=== PATIENT | female | born 1960 | race Caucasian/White ===

== ENCOUNTER → 2018-02-10 15:54 | Outpatient (CLI) | payer MEDICARE, OTHER, SELFPAY ==
--- NOTE | 2018-02-10 16:04 | RAD_ITS ---
STUDY: X-RAY CHEST REASON FOR EXAM: Female, 57 years old. History of psoriatic arthropathy. TECHNIQUE: PA and lateral views of the chest. COMPARISON: None. FINDINGS: Minimal increased linear markings at the left lung base suggestive of mild linear atelectasis. Scattered calcified granulomas. There is no demonstrated pleural abnormality. Normal size heart. Normal mediastinum and jazlyn. Normal visualized pulmonary arteries. Normal visualized aortic arch and descending thoracic aorta. There are diffuse degenerative changes of the visualized thoracic spine. Normal visualized ribs, clavicles, and shoulders. There is no demonstrated abnormality of the visualized soft tissue structures of the upper abdomen. RAD/Chest PA and Lateral IMPRESSION: Minimal increased linear markings at the left lung base suggestive of mild left basilar atelectasis. Electronically Signed: Alejandro Menendez MD at 10:22 EST Tel [phone], Service support ,
[2018-02-10 17:57] LABS: Anion Gap 10 (5-15); BUN 12 mg/dL (7-18); BUN/Creat Ratio 12.5 RATIO (10-20); Calcium,Total 8.8 mg/dL (8.5-10.1); Chloride 106 mmol/L (98-107); Creatinine, Serum 0.96 mg/dL (0.55-1.02); EST Glomerular Filtration Rate 63 mL/min (>60); Est Glom Filt Rate - Afr Amer 76 mL/min (>60); Glucose 81 mg/dL (74-106); Potassium 3.8 mmol/L (3.5-5.1); Sodium Level 144 mmol/L (136-145)
--- OUTSIDE RECORDS SUMMARY | 2018-04-08 02:18 | XMS RPT_ITS ---
:1960 Author Organization OHIP Care Team Providers Name Role Phone JORGE SELF M.D. Attending Unavailable MT BARRIOS PA-C Attending Unavailable RYNE FLETCHER V Attending Unavailable JORGE SELF M.D. Attending Unavailable JORGE SELF M.D. Attending Unavailable JORGE SELF M.D. Attending Unavailable JORGE SELF M.D. Attending Unavailable ELBERT RECIO Attending Unavailable ELBERT RECIO Referring Unavailable ELBERT RECIO Attending Unavailable MILENA JIMENEZ Attending Unavailable Jorge Self Attending Unavailable Jorge Self Referring Unavailable CHUCKY MCKNIGHT Primary Care Unavailable JESSI NOBLES Attending Unavailable ALMITA PATRI Referring Unavailable JESSESMITHA SORIANO Primary Care Unavailable RECIOTHIERRYRI Attending Unavailable RECIO PATRI Referring Unavailable JESSESMITHA SORIANO Primary Care Unavailable IMCA Referring Unavailable RECIOKALEN PAN Attending Unavailable JESSESMITHA SORIANO Primary Care Unavailable IMCA Referring Unavailable MILENA JIMENEZ Attending Unavailable JESSE, SMITHA Primary Care Unavailable PROBLEMS PROBLEMS DATE TYPE CONDITION / CODE ATTENDING STATUS SOURCE 02/24/2018 Unknown L40.59 - Other [place], [facility].59([facility] Repository 12/10/2015 Active Radiculopathy, RECIO, Active [place] lumbar region / [facility] Other M54.16(ICD-10) [place] Repository 12/10/2015 Active Other chronic pain / RECIO, Active [place] G89.29(ICD-10) [facility] Other [place] Repository 12/10/2015 Active 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, 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 or [facility] Other radiculopathy, [place] cervical region / Repository M47.812(ICD-10) 12/10/2015 Active Other cervical disc RECIO, Active [place] displacement, [facility] Other unspecified cervical [place] region / Repository M50.20(ICD-10) 12/10/2015 Active Other cervical disc RECIO, 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, [facility] Other unspecified cervical [place] region / Repository M50.30(ICD-10) 12/12/2016 Active Sacrococcygeal RADDISH, 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, not [facility] Other elsewhere classified [place] / M53.3(ICD-10) Repository 12/10/2015 Active Other intervertebral [facility]ADDISH, [facility] [place] [facility] / [place] M51.26(ICD-10) Repository 12/10/2015 Active Other intervertebral RADDISH, 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, [facility] Other lumbosacral region / [place] M51.37(ICD-10) Repository 12/10/2015 Active Spondylosis without RADDISH, 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 or [facility] Other radiculopathy, [place] lumbosacral region / Repository M47.817(ICD-10) 04/28/2017 Active Cervicalgia / RADDISH, Active [place] M54.2(ICD-10) [facility] Other [place] Repository 04/28/2017 Active Dorsalgia, RADDISH, Active [place] unspecified / [facility] Other M54.9(ICD-10) [place] Repository 12/12/2016 Admitting Unknown / RADDISH, Active [facility] diagnosis UNK(Unknown) [facility] Repository PROCEDURES PROCEDURES No Procedure Records FoundRESULTS RESULTS BASIC METABOLIC Collected: 02/10/2018 Status: F Source: [place] PROFILE (BMP) 4:07 PM [facility] REPOSITORY Order Comment: Comments: QFT [id number] TYPE CODE TESTS RESULT OUT OF RANGE REFERENCE UNITS LAB L501.0100 74-106 mg/dL Normal GLU 81 Result Comment: Please note revised GLUCOSE reference range effective 2017. LAB L501.1000 7-18 mg/dL Normal BUN 12 LAB L501.1100 0.55-1.02 mg/dL Normal CREAT,SERUM 0.96 Result Comment: The validity of the calculated GFR AND GFRAA in patients over 70 years has not been determined. Clinical correlation is essential. LAB L501.1110 >60 mL/min Normal EST GFR 63 Result Comment: Non- GFR Calc LAB L501.1115 >60 mL/min Normal EST GFR - AA 76 Result Comment: GFR Calc LAB L501.1300 10-20 RATIO Normal BUN/CRE 12.5 LAB L501.2200 8.5-10.1 mg/dL CA Normal 8.8 LAB L501.5300 136-145 mmol/L NA Normal 144 LAB L501.5600 3.5-5.1 mmol/L K Normal 3.8 LAB L501.5900 98-107 mmol/L CL Normal 106 LAB L501.6100 21.0-32.0 mmol/L Normal CO2 28.0 LAB L501.6200 5-15 Normal GAP 10 Performed By: #### L500.2500 #### [facility] [address] [place], [address] MISCELLANEOUS LAB Collected: 02/10/2018 Status: F Source: [place] PROCEDURE 4:07 PM [facility] REPOSITORY Order Comment: Comments: QFT [id number] Test(s) Ordered: QFT [id number] TYPE CODE TESTS RESULT OUT OF RANGE REFERENCE UNITS LAB L801.1541 Normal [facility] TEST Result Comment: TEST RESULT UNITS REF INTERVAL QFT-TB Plus (Client Incubated) QuantiFERON Criteria The QuantiFERON-TB Gold Plus result is determined by subtracting the Nil value from either TB antigen (Ag) tube. The mitogen tube serves as a control for the test. QuantiFERON TB1 Ag Value 0.03 IU/mL QuantiFERON TB2 Ag Value 0.03 IU/mL QuantiFERON Nil Value 0.03 IU/mL QuantiFERON Mitogen Value >10.00 IU/mL QuantiFERON-TB Gold Plus Negative Negative The specimen received for QuantiFERON testing was incubated by the ordering institution. Specific procedures outlined in our Directory of Services and in the package insert for the QuantiFERON Gold (In Tube) test must be followed to enable for proper stimulation of cells for the production of interferon gamma. TESTING PERFORMED AT [facility]. ORIGINAL REPORT ON FILE IN LAB CONTAINS ADDITIONAL TEST SITE INFORMATION. Performed By: #### L801.1541 #### [facility] [address] [place] [place], [address] CHEST PA AND LATERAL Observed: 02/10/2018 Status: F Source: [place] 4:04 PM [facility] REPOSITORY [facility] Imaging Services [address] [place] [address] Chest PA and Lateral MR#: [id number] Acct: [id number] Name: SABA PERRY Gen Rep #: [id number] : 1960 F 57 From: Alejandro Menendez MD PCP: OUT OF TOWN DOCTOR Status: REG CLI Study: Chest PA and Lateral Date of Exam: 02/10/18 Exam# [id number] Ordering Dr: Jorge Self MD STUDY: X-RAY CHEST REASON FOR EXAM: Female, 57 years old. History of psoriatic arthropathy. TECHNIQUE: PA and lateral views of the chest. COMPARISON: None. FINDINGS: Minimal increased linear markings at the left lung base suggestive of mild linear atelectasis. Scattered calcified granulomas. There is no demonstrated pleural abnormality. Normal size heart. Normal mediastinum and jazlyn. Normal visualized pulmonary arteries. Normal visualized aortic arch and descending thoracic aorta. There are diffuse degenerative changes of the visualized thoracic spine. Normal visualized ribs, clavicles, and shoulders. There is no demonstrated abnormality of the visualized soft tissue structures of the upper abdomen. RAD/Chest PA and Lateral IMPRESSION: Minimal increased linear markings at the left lung base suggestive of mild left basilar atelectasis. 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 CBC Collected: 01/26/2018 Status: F Source: [facility] 5:52 PM HOSPITAL REPOSITORY TYPE CODE TESTS RESULT OUT OF RANGE REFERENCE UNITS LAB L200.0100 4.5-10.0 x10(3) Normal WBC 7.1 LAB L200.0200 3.30-5.00 x10(6) Normal RBC 4.03 LAB L200.0210 12.0-16.0 g/dL Low HGB 11.6 LAB L200.0220 36.0-48.0 % Low HCT 35.0 LAB L200.0230 80.0-99.0 fl Normal MCV 86.9 LAB L200.0240 28.5-32.9 pg Normal MCH 28.9 LAB L200.0250 33.0-36.0 g/dL Normal MCHC 33.2 LAB L200.0260 12.5-15.7 % Normal RDW 15.7 LAB L200.0270 150-450 X10(3) Normal PLT 315 LAB L200.0290 7.5-9.5 fl Normal MPV 8.4 LAB L200.0300 45.0-73.0 % Normal NEUT% 57.6 LAB L200.0310 16.0-48.0 % Normal LYMPH% 27.6 LAB L200.0320 4.3-11.2 % Normal MONO% 10.3 LAB L200.0330 0.5-4.9 % Normal EOS% 3.3 LAB L200.0340 0.0-1.0 % High BASO% 1.2 LAB L200.0350 1.40-6.50 x10(3) Normal NEUT# 4.10 LAB L200.0360 1.00-3.50 x10(3) Normal LYMPH# 2.00 LAB L200.0370 0.30-0.80 x10(3) Normal MONO# 0.70 LAB L200.0380 0.00-0.54 x10(3) Normal EOS# 0.20 LAB L200.0390 0.00-0.10 x10(3) Normal BASO# 0.10 Performed By: #### L200.0010 #### [facility] [address] [place] [id number] CMP Collected: 01/26/2018 Status: F Source: [facility] 5:52 PM HOSPITAL REPOSITORY TYPE CODE TESTS RESULT OUT OF RANGE REFERENCE UNITS LAB L100.0060 74-106 mg/dL GLUCOSE Normal 94 LAB L100.0110 6-20 mg/dL BUN Normal 16 LAB L100.0131 0.50-0.90 mg/dL High CREATININE 0.94 LAB L100.0140 8.6-10.0 mg/dL CALCIUM Normal 9.7 LAB L100.0150 135-145 mmol/L High SODIUM 150 LAB L100.0160 3.5-5.0 mmol/L Normal POTASSIUM 4.0 LAB L100.0170 98-107 mmol/L High CHLORIDE 108 LAB L100.0180 22-29 mmol/L TCO2 Normal 25 LAB L100.0185 15-22 mmol/L ANION Normal GAP 21.0 LAB L100.0200 6.4-8.3 g/dL TOTAL Normal PROTEIN 7.0 LAB L100.0210 3.5-5.2 g/dL ALBUMIN Normal 4.4 LAB L100.0220 0.2-1.2 mg/dL TOTAL Normal BILIRUBIN <0.2 LAB L100.0240 5-32 U/L AST Normal 26 LAB L100.0250 5-33 U/L ALT Normal 19 LAB L100.0260 35-105 U/L High ALK. PHOS 121 LAB L100.0262 1.5-4.5 g/dL Normal GLOBULIN,CALC 2.6 LAB L100.0264 1.1-2.5 A:G Normal RATIO 1.69 LAB L100.0274 eGFR Normal nonAFR [place] > 60 ml/Min/1.73m 2 LAB L100.0275 eGFR if Normal AFR BEVERLY > 60 ml/min/1.73m 2 Result Comment: eGFR >= 60 Indicates normal kidney function. * eGFR IS AN ESTIMATE * (AFR BEVERLY = ) (non-AFR AM = NON-) MDRD calculation used in the eGFR should not be used to dose medications. For further limitations of the eGFR please refer to the Physician Website or the National Kidney Disease Education Program website (www.nkdep.nih.gov). Performed By: #### L100.0005 #### [facility] [address] [place] [address] CBC Collected: 11/17/2017 Status: F Source: [facility] 4:10 PM HOSPITAL REPOSITORY TYPE CODE TESTS RESULT OUT OF RANGE REFERENCE UNITS LAB L200.0100 4.5-10.0 x10(3) Normal WBC 8.8 LAB L200.0200 3.30-5.00 x10(6) Normal RBC 4.14 LAB L200.0210 12.0-16.0 g/dL Low HGB 11.6 LAB L200.0220 36.0-48.0 % Low HCT 35.6 LAB L200.0230 80.0-99.0 fl Normal MCV 85.9 LAB L200.0240 28.5-32.9 pg Low MCH 28.0 LAB L200.0250 33.0-36.0 g/dL Low MCHC 32.6 LAB L200.0260 12.5-15.7 % High RDW 16.6 LAB L200.0270 150-450 X10(3) Normal PLT 370 LAB L200.0290 7.5-9.5 fl Normal MPV 8.2 LAB L200.0300 45.0-73.0 % Normal NEUT% 58.8 LAB L200.0310 16.0-48.0 % Normal LYMPH% 26.6 LAB L200.0320 4.3-11.2 % Normal MONO% 6.8 LAB L200.0330 0.5-4.9 % High EOS% 6.6 LAB L200.0340 0.0-1.0 % High BASO% 1.2 LAB L200.0350 1.40-6.50 x10(3) Normal NEUT# 5.20 LAB L200.0360 1.00-3.50 x10(3) Normal LYMPH# 2.30 LAB L200.0370 0.30-0.80 x10(3) Normal MONO# 0.60 LAB L200.0380 0.00-0.54 x10(3) High EOS# 0.60 LAB L200.0390 0.00-0.10 x10(3) Normal BASO# 0.10 Performed By: #### L200.0010 #### [facility] [address] [place] [id number] CMP Collected: 11/17/2017 Status: F Source: [facility] 4:10 PM HOSPITAL REPOSITORY TYPE CODE TESTS RESULT OUT OF RANGE REFERENCE UNITS LAB L100.0060 74-106 mg/dL GLUCOSE Normal 97 LAB L100.0110 6-20 mg/dL BUN Normal 14 LAB L100.0131 0.50-0.90 mg/dL High CREATININE 0.93 LAB L100.0140 8.6-10.0 mg/dL CALCIUM Normal 9.3 LAB L100.0150 135-145 mmol/L High SODIUM 148 LAB L100.0160 3.5-5.0 mmol/L Normal POTASSIUM 4.5 LAB L100.0170 98-107 mmol/L CHLORIDE Normal 107 LAB L100.0180 22-29 mmol/L TCO2 Normal 24 LAB L100.0185 15-22 mmol/L ANION Normal GAP 21.5 LAB L100.0200 6.4-8.3 g/dL TOTAL Normal PROTEIN 6.9 LAB L100.0210 3.5-5.2 g/dL ALBUMIN Normal 4.5 LAB L100.0220 0.2-1.2 mg/dL TOTAL Normal BILIRUBIN <0.2 LAB L100.0240 5-32 U/L AST Normal 25 LAB L100.0250 5-33 U/L ALT Normal 26 LAB L100.0260 35-105 U/L High ALK. PHOS 123 LAB L100.0262 1.5-4.5 g/dL Normal GLOBULIN,CALC 2.4 LAB L100.0264 1.1-2.5 A:G Normal RATIO 1.87 LAB L100.0274 eGFR Normal nonAFR [place] > 60 ml/Min/1.73m 2 LAB L100.0275 eGFR if Normal AFR BEVERLY > 60 ml/min/1.73m 2 Result Comment: eGFR >= 60 Indicates normal kidney function. * eGFR IS AN ESTIMATE * (AFR BEVERLY = ) (non-AFR AM = NON-) MDRD calculation used in the eGFR should not be used to dose medications. For further limitations of the eGFR please refer to the Physician Website or the National Kidney Disease Education Program website (www.nkdep.nih.gov). Performed By: #### L100.0005 #### [facility] [address] [place] [id number] CBC Collected: 08/28/2017 Status: F Source: [facility] 4:02 PM HOSPITAL REPOSITORY TYPE CODE TESTS RESULT OUT OF RANGE REFERENCE UNITS LAB L200.0100 4.5-10.0 x10(3) Normal WBC 7.4 LAB L200.0200 3.30-5.00 x10(6) Normal RBC 4.08 LAB L200.0210 12.0-16.0 g/dL Low HGB 11.6 LAB L200.0220 36.0-48.0 % Low HCT 35.2 LAB L200.0230 80.0-99.0 fl Normal MCV 86.3 LAB L200.0240 28.5-32.9 pg Normal MCH 28.5 LAB L200.0250 33.0-36.0 g/dL Normal MCHC 33.0 LAB L200.0260 12.5-15.7 % Normal RDW 15.5 LAB L200.0270 150-450 X10(3) Normal PLT 302 LAB L200.0290 7.5-9.5 fl Normal MPV 8.6 LAB L200.0300 45.0-73.0 % Normal NEUT% 59.9 LAB L200.0310 16.0-48.0 % Normal LYMPH% 29.4 LAB L200.0320 4.3-11.2 % Normal MONO% 6.9 LAB L200.0330 0.5-4.9 % Normal EOS% 2.6 LAB L200.0340 0.0-1.0 % High BASO% 1.2 LAB L200.0350 1.40-6.50 x10(3) Normal NEUT# 4.40 LAB L200.0360 1.00-3.50 x10(3) Normal LYMPH# 2.20 LAB L200.0370 0.30-0.80 x10(3) Normal MONO# 0.50 LAB L200.0380 0.00-0.54 x10(3) Normal EOS# 0.20 LAB L200.0390 0.00-0.10 x10(3) Normal BASO# 0.10 Performed By: #### L200.0010 #### [facility] [address] [place] [id number] CMP Collected: 08/28/2017 Status: F Source: [facility] 4:02 PM HOSPITAL REPOSITORY TYPE CODE TESTS RESULT OUT OF RANGE REFERENCE UNITS LAB L100.0060 74-106 mg/dL GLUCOSE Normal 90 LAB L100.0110 6-20 mg/dL BUN Normal 13 LAB L100.0131 0.50-0.90 mg/dL Normal CREATININE 0.78 LAB L100.0140 8.6-10.0 mg/dL CALCIUM Normal 9.0 LAB L100.0150 135-145 mmol/L SODIUM Normal 143 LAB L100.0160 3.5-5.0 mmol/L Normal POTASSIUM 3.7 LAB L100.0170 98-107 mmol/L CHLORIDE Normal 102 LAB L100.0180 22-29 mmol/L TCO2 Normal 27 LAB L100.0185 15-22 mmol/L ANION Normal GAP 17.7 LAB L100.0200 6.4-8.3 g/dL TOTAL Normal PROTEIN 6.5 LAB L100.0210 3.5-5.2 g/dL ALBUMIN Normal 4.2 LAB L100.0220 0.2-1.2 mg/dL TOTAL Normal BILIRUBIN <0.2 LAB L100.0240 5-32 U/L AST Normal 24 LAB L100.0250 5-33 U/L ALT Normal 18 LAB L100.0260 35-105 U/L ALK. Normal PHOS 104 LAB L100.0262 1.5-4.5 g/dL Normal GLOBULIN,CALC 2.3 LAB L100.0264 1.1-2.5 A:G Normal RATIO 1.82 LAB L100.0274 eGFR Normal nonAFR [place] > 60 ml/Min/1.73m 2 LAB L100.0275 eGFR if Normal AFR BEVERLY > 60 ml/min/1.73m 2 Result Comment: eGFR >= 60 Indicates normal kidney function. * eGFR IS AN ESTIMATE * (AFR BEVERLY = ) (non-AFR AM = NON-) MDRD calculation used in the eGFR should not be used to dose medications. For further limitations of the eGFR please refer to the Physician Website or the National Kidney Disease Education Program website (www.nkdep.nih.gov). Performed By: #### L100.0005 #### [facility] [address] [place] [id number] CMP Collected: 06/18/2017 Status: F Source: [facility] 8:49 AM HOSPITAL REPOSITORY TYPE CODE TESTS RESULT OUT OF RANGE REFERENCE UNITS LAB L100.0060 74-106 mg/dL High GLUCOSE 111 LAB L100.0110 6-20 mg/dL BUN Normal 12 LAB L100.0131 0.50-0.90 mg/dL Normal CREATININE 0.90 LAB L100.0140 8.6-10.0 mg/dL CALCIUM Normal 9.2 LAB L100.0150 135-145 mmol/L SODIUM Normal 144 LAB L100.0160 3.5-5.0 mmol/L Low POTASSIUM 3.4 LAB L100.0170 98-107 mmol/L CHLORIDE Normal 102 LAB L100.0180 22-29 mmol/L TCO2 Normal 25 LAB L100.0185 15-22 mmol/L ANION Normal GAP 20.4 LAB L100.0200 6.4-8.3 g/dL TOTAL Normal PROTEIN 6.6 LAB L100.0210 3.5-5.2 g/dL ALBUMIN Normal 4.2 LAB L100.0220 0.2-1.2 mg/dL TOTAL Normal BILIRUBIN 0.2 LAB L100.0240 5-32 U/L AST Normal 19 LAB L100.0250 5-33 U/L ALT Normal 18 LAB L100.0260 35-105 U/L High ALK. PHOS 106 LAB L100.0262 1.5-4.5 g/dL Normal GLOBULIN,CALC 2.4 LAB L100.0264 1.1-2.5 A:G Normal RATIO 1.75 LAB L100.0274 eGFR Normal nonAFR Beverly > 60 ml/Min/1.73m 2 LAB L100.0275 eGFR if Normal AFR BEVERLY > 60 ml/min/1.73m 2 Result Comment: eGFR >= 60 Indicates normal kidney function. * eGFR IS AN ESTIMATE * (AFR BEVERLY = ) (non-AFR AM = NON-) MDRD calculation used in the eGFR should not be used to dose medications. For further limitations of the eGFR please refer to the Physician Website or the National Kidney Disease Education Program website (www.nkdep.nih.gov). Performed By: #### L100.0005 #### [facility] [address] [place] [address] CBC Collected: 06/18/2017 Status: F Source: [facility] 8:49 AM HOSPITAL REPOSITORY TYPE CODE TESTS RESULT OUT OF RANGE REFERENCE UNITS LAB L200.0100 4.5-10.0 x10(3) Normal WBC 8.1 LAB L200.0200 3.30-5.00 x10(6) Normal RBC 4.31 LAB L200.0210 12.0-16.0 g/dL Normal HGB 12.3 LAB L200.0220 36.0-48.0 % Normal HCT 37.7 LAB L200.0230 80.0-99.0 fl Normal MCV 87.4 LAB L200.0240 28.5-32.9 pg Normal MCH 28.5 LAB L200.0250 33.0-36.0 g/dL Low MCHC 32.6 LAB L200.0260 12.5-15.7 % High RDW 15.9 LAB L200.0270 150-450 X10(3) Normal PLT 302 LAB L200.0290 7.5-9.5 fl Normal MPV 8.9 LAB L200.0300 45.0-73.0 % Normal NEUT% 62.0 LAB L200.0310 16.0-48.0 % Normal LYMPH% 27.1 LAB L200.0320 4.3-11.2 % Normal MONO% 5.8 LAB L200.0330 0.5-4.9 % Normal EOS% 4.1 LAB L200.0340 0.0-1.0 % Normal BASO% 1.0 LAB L200.0350 1.40-6.50 x10(3) Normal NEUT# 5.00 LAB L200.0360 1.00-3.50 x10(3) Normal LYMPH# 2.20 LAB L200.0370 0.30-0.80 x10(3) Normal MONO# 0.50 LAB L200.0380 0.00-0.54 x10(3) Normal EOS# 0.30 LAB L200.0390 0.00-0.10 x10(3) Normal BASO# 0.10 Performed By: #### L200.0010 #### [facility] [address] [place] [id number] PROCEDURE Observed: 06/03/2017 Status: COMPLETED Source: [place] 2:06 PM CLINIC OTHER CAMPUS REPOSITORY HNO ID: [id number] Author: Elbert Recio Service: (none) Author Type: Physician Type: Procedures Filed: 06/03/2017 2:17 PM Note Text: The HANDP completed on 05.25.17. I have reviewed the history and physical and examined the patient and there are no changes unless noted below: No update and/or changes to Saba Perry history and physical. Elbert Recio MD Timeout was performed to verify patient name, , allergies and procedure being performed at 1407 Patient is aware of potential risks and benefits of this procedure. Patient wishes to proceed. Procedure start time: 1409 Procedure end time: 141 Pre-and postprocedure diagnosis: Lumbar Radiculitis Procedure: Transforaminal epidural steroid injection on the left at the L3 and L4 levels under fluoroscopic guidance Performed by Elbert Recio Complications: None Anesthesia: Local anesthetic Clinical note: The patient has a history of low back and left leg pain. The patient requests the procedure and an attempt to improve the pain. Procedure note: The patient was brought to the procedure room and placed in the prone position. Sterile prep and drape with ChloraPrep and sterile towels. 10 mL of half percent lidocaine were injected through a 27-gauge needle for local anesthesia. 22-gauge Sprotte needles were guided to the left L3 and L4 transforaminal epidural space. After negative aspiration, 1 ml of omnipaque was injected through the needle to ensure proper needle placement. Then 2 mL of half percent lidocaine and 60 mg of methylprednisolone were injected through the needles in divided doses. The needles were removed and the patient was transferred to recovery. Plan: The patient was instructed to call the clinic with any questions or concerns. The patient will have a follow-up appointment to discuss progress. PROGRESS Observed: 06/03/2017 Status: COMPLETED Source: [place] 2:05 PM CLINIC OTHER CAMPUS REPOSITORY O ID: [id number] Author: Shereen Whatley LPN Service: (none) Author Type: (none) Type: Progress Notes Filed: 06/03/2017 2:17 PM Note Text: Subjective HPI Review of Systems Constitutional: Negative for chills and fever. Eyes: Negative for blurred vision and double vision. Respiratory: Negative for shortness of breath. Cardiovascular: Negative for chest pain and leg swelling. Gastrointestinal: Negative for constipation, diarrhea, nausea and vomiting. Genitourinary: Negative for dysuria. Skin: Negative for itching. Neurological: Negative for dizziness, tingling, weakness and headaches. Psychiatric/Behavioral: Negative for depression and suicidal ideas. PAST MEDICAL HISTORY Diagnosis Date - Acid reflux - Asthma - Degenerative disc disease - Hypertension PAST SURGICAL HISTORY Procedure Laterality Date - BACK SURGERY HX several for degenerative disc disease - HYSTERECTOMY HX FAMILY HISTORY Problem Relation Age of Onset - Heart Father - Diabetes Father - Cataract Father - Cancer Mother Ovarian - Cataract Mother - Cancer Maternal Grandmother liver - Heart Paternal Grandmother - Cancer Paternal Grandmother colon - Heart Paternal Grandfather Social History Marital status: Spouse name: Years of education: Number of children: Social History Main Topics Smoking status: Never Smoker Smokeless status: Never Used Alcohol use: No Drug use: No Other Topics Concern Caffeine Concern Yes Comment:occasional Special Diet No Exercise No Current Meds topiramate (TOPAMAX) 25 mg tablet Take 1 tablet by mouth twice daily. Take at bedtime x 1 week, then increase to twice daily folic acid 1 mg tablet methotrexate 2.5 mg tablet atorvastatin (LIPITOR) 20 mg tablet Take 20 mg by mouth once daily. LISINOPRIL ORAL Take 40 mg by mouth once daily. DULOXETINE HCL (CYMBALTA ORAL) Take 60 mg by mouth once daily. Objective BP 149/81 Pulse 79 Temp 98 Ht 5' 2 (1.58m) Wt 150 lb (68.0kg) BMI 27.43 kg/(m2). Physical Exam OBSOLETE Observed: 06/03/2017 Status: COMPLETED Source: [place] 2:00 PM CLINIC OTHER [place] REPOSITORY Procedure ([facility]) SABA PERRY ([id number]) 1960 F Date Time Provider Department 06/03/17 2:00 PM ELBERT RECIO [facility] During your visit today, we recorded the following information about you: Temperature Pulse Blood pressure Weight 98 degrees 59/minute 183/94 68 kg Height 1.575 m RT Walter Tech 06/03/2017 1:30 PM Signed PROCEDURE DISCHARGE INSTRUCTIONS 06/03/2017 Saba Perry 1960 Physician: Elbert Recio MD Procedure: Epidural Steroid Injection: Lumbar (transforaminal/Interlaminar/Caudal) Post Procedure Instructions: If sedation not given, no driving for 3 hours after the procedure., If sedation given, no driving the day of the procedure., Rest the day of the procedure., You may resume normal activities the day after the procedure, as tolerated., Avoid movements that may aggravate pain., Apply cold compresses to injection site if needed., If medically acceptable, take over the counter anti-inflammatories such as ibuprofen or Aleve if needed for post procedure discomfort., No hot baths, hot tubs or hot compresses for 24 hours. and Increased pain the day after the procedure may occur. If you have any of the following signs or symptoms, please call our office at ? Fever and/or chills ? Swelling and/or drainage from injection site ? New pain that is different than your normal pain (other than soreness at the site of the procedure) ? Stiff neck ? Shortness of breath ? Severe increase in pain ? Motor dysfunctions, such as difficulty walking, bowel or bladder dysfunction and/or incontinence ? Headache that is severe, light sensitive or develops when changing positions (positional headache) ? Nausea and/or vomiting accompanied by headache that started 24-48 hours after the procedure If you have any emergent concerns, please call 911 or go to your local emergency room. Please also contact our office to let us know you will be seeking emergency care and why. Inez Hitchcock MA 06/03/2017 2:08 PM Signed Xylocaine 0.5% Production Controller: [employer] Lot #: [id number] [facility] #: [id number] Expiration Date: 01/03 Depo Medrol Production Controller: [employer] Lot #: [id number] [facility] #: [id number] Expiration Date: 04/2018 Omnipaque Production Controller: [employer]pak Lot #: [id number] [facility] #: [id number] Expiration Date: 02/18/20 Shereen Whatley LPN 06/03/2017 2:17 PM Signed Subjective HPI Review of Systems Constitutional: Negative for chills and fever. Eyes: Negative for blurred vision and double vision. Respiratory: Negative for shortness of breath. Cardiovascular: Negative for chest pain and leg swelling. Gastrointestinal: Negative for constipation, diarrhea, nausea and vomiting. Genitourinary: Negative for dysuria. Skin: Negative for itching. Neurological: Negative for dizziness, tingling, weakness and headaches. Psychiatric/Behavioral: Negative for depression and suicidal ideas. PAST MEDICAL HISTORY Diagnosis Date - Acid reflux - Asthma - Degenerative disc disease - Hypertension PAST SURGICAL HISTORY Procedure Laterality Date - BACK SURGERY HX several for degenerative disc disease - HYSTERECTOMY HX FAMILY HISTORY Problem Relation Age of Onset - Heart Father - Diabetes Father - Cataract Father - Cancer Mother Ovarian - Cataract Mother - Cancer Maternal Grandmother liver - Heart Paternal Grandmother - Cancer Paternal Grandmother colon - Heart Paternal Grandfather Social History Marital status: Spouse name: Years of education: Number of children: Social History Main Topics Smoking status: Never Smoker Smokeless status: Never Used Alcohol use: No Drug use: No Other Topics Concern Caffeine Concern Yes Comment:occasional Special Diet No Exercise No Current Meds topiramate (TOPAMAX) 25 mg tablet Take 1 tablet by mouth twice daily. Take at bedtime x 1 week, then increase to twice daily folic acid 1 mg tablet methotrexate 2.5 mg tablet atorvastatin (LIPITOR) 20 mg tablet Take 20 mg by mouth once daily. LISINOPRIL ORAL Take 40 mg by mouth once daily. DULOXETINE HCL (CYMBALTA ORAL) Take 60 mg by mouth once daily. Objective BP 149/81 Pulse 79 Temp 98 Ht 5' 2ANDquot; (1.58m) Wt 150 lb (68.0kg) BMI 27.43 kg/(m2). Physical Exam Elbert Recio MD 06/03/2017 2:17 PM Signed The HANDamp;P completed on 05.25.17. I have reviewed the history and physical and examined the patient and there are no changes unless noted below: No update and/or changes to Saba Perry history and physical. Elbert Recio MD Timeout was performed to verify patient name, , allergies and procedure being performed at 1407 Patient is aware of potential risks and benefits of this procedure. Patient wishes to proceed. Procedure start time: 1409 Procedure end time: 1414 Pre-and postprocedure diagnosis: Lumbar Radiculitis Procedure: Transforaminal epidural steroid injection on the left at the L3 and L4 levels under fluoroscopic guidance Performed by Elbert Recio Complications: None Anesthesia: Local anesthetic Clinical note: The patient has a history of low back and left leg pain. The patient requests the procedure and an attempt to improve the pain. Procedure note: The patient was brought to the procedure room and placed in the prone position. Sterile prep and drape with ChloraPrep and sterile towels. 10 mL of half percent lidocaine were injected through a 27- gauge needle for local anesthesia. 22-gauge Sprotte needles were guided to the left L3 and L4 transforaminal epidural space. After negative aspiration, 1 ml of omnipaque was injected through the needle to ensure proper needle placement. Then 2 mL of half percent lidocaine and 60 mg of methylprednisolone were injected through the needles in divided doses. The needles were removed and the patient was transferred to recovery. Plan: The patient was instructed to call the clinic with any questions or concerns. The patient will have a follow-up appointment to discuss progress. Inez Hitchcock MA 06/03/2017 2:08 PM Signed Patient was walked from exam room to procedure room and assisted onto the procedure tablePatient?s procedure was performed in [facility] procedure room. Pressure was applied to patient?s injection site(s) and bleeding was minimal. Patient had no complaint of shortness of breath, dizziness, headache, numbness, tingling, weakness or complications from procedure. Patient was assisted from the procedure table and walked back to exam room. Patient was advised a clinician will be to obtain another set of vitals. Felicia Carranza 06/03/2017 2:23 PM Signed Dressing dry and intact, no drainage noted. The patient denies numbness, tingling, weakness, shortness of breath, dizziness or headache. Pain level 0/10. Patient given discharge instructions and escorted to transportation via ambulatory method. Patient left in good condition. Felicia Carranza Referring Provider: ELBERT RECIO [[id number]] Allergies As of Date: 06/03/2017 Noted Allergy Reaction CLINDAMYCIN 08/03/2012 4 - Hives 7 - Swelling 9 - Itching MORPHINE 08/03/2012 11 - Vomiting PENICILLINS 08/03/2012 4 - Hives 7 - Swelling 9 - Itching Date Reviewed: 06/03/2017 Reviewed by: Shereen Whatley LPN - Fully Assessed Reason for Visit: Injections [199] Cmt: Left L3 L4 LTR Primary Visit Diagnosis:Lumbar radiculopathy [M54.16] Order(s):INJ TRANSFORAMINAL EPID ANES/STER LS SINGL [[id number]] Order #: [id number] INJ TRANSFRAM EPID ANES/STER LS MULTI [[id number]] Order #: [id number] METHYLPREDNISOLONE 40 MG INJ [[id number]] Order #: [id number] LIDOCAINE INJECTION [[id number]] Order #: [id number] LOCM 300-399MG/ML IODINE,1ML [[id number]] Order #: [id number] METHYLPREDNISOLONE 40 MG INJ [[id number]] Order #: [id number] Prescriptions as of 06/03/2017 Sig: TOPIRAMATE 25 MG TABLET Take 1 tablet by mouth twice * FOLIC ACID 1 MG TABLET METHOTREXATE SODIUM 2.5 MG TA* ATORVASTATIN 20 MG TABLET Take 20 mg by mouth once jacqueline* LISINOPRIL ORAL Take 40 mg by mouth once jacqueline* CYMBALTA ORAL Take 60 mg by mouth once jacqueline* Problem List As Of Date 06/03/2017 Noted Resolved Degeneration of cervical intervertebral disc [M*INVALID FOR* Displacement of cervical intervertebral disc wi*INVALID FOR* Cervical spondylosis without myelopathy [M47.81*INVALID FOR* Cervical radiculopathy [M54.12] INVALID FOR* Chronic pain [G89.29] INVALID FOR* Lumbosacral spondylosis without myelopathy [M47*INVALID FOR* Lumbar radiculopathy [M54.16] INVALID FOR* Degeneration of lumbar or lumbosacral intervert*INVALID FOR* Displacement of lumbar intervertebral disc with*INVALID FOR* Inflammation of left sacroiliac joint (HCC) [M4*INVALID FOR* Pain of left sacroiliac joint [M53.3] INVALID FOR* Other instructions from your clinician: PROCEDURE DISCHARGE INSTRUCTIONS 06/03/2017 Saba Perry 1960 Physician: Elbert Recio MD Procedure: Epidural Steroid Injection: Lumbar (transforaminal/Interlaminar/Caudal) Post Procedure Instructions: If sedation not given, no driving for 3 hours after the procedure., If sedation given, no driving the day of the procedure., Rest the day of the procedure., You may resume normal activities the day after the procedure, as tolerated., Avoid movements that may aggravate pain., Apply cold compresses to injection site if needed., If medically acceptable, take over the counter anti-inflammatories such as ibuprofen or Aleve if needed for post procedure discomfort., No hot baths, hot tubs or hot compresses for 24 hours. and Increased pain the day after the procedure may occur. If you have any of the following signs or symptoms, please call our office at ? Fever and/or chills ? Swelling and/or drainage from injection site ? New pain that is different than your normal pain (other than soreness at the site of the procedure) ? Stiff neck ? Shortness of breath ? Severe increase in pain ? Motor dysfunctions, such as difficulty walking, bowel or bladder dysfunction and/or incontinence ? Headache that is severe, light sensitive or develops when changing positions (positional headache) ? Nausea and/or vomiting accompanied by headache that started 24-48 hours after the procedure If you have any emergent concerns, please call 911 or go to your local emergency room. Please also contact our office to let us know you will be seeking emergency care and why. Visit Notes: >> Inez Rodriguez Naldo ThuJun 03, 2017 1:30 PM Status: Signed Xylocaine 0.5% Production Controller: [employer] Lot #: [id number] [facility] #: [id number] Expiration Date: 01/03 Depo Medrol Production Controller: [employer] Lot #: [id number] [facility] #: [id number] Expiration Date: 04/2018 Omnipaque Production Controller: pluspak Lot #: [id number] [facility] #: [id number] Expiration Date: 02/18/20 >> Inez Rodriguez Naldo ThuJun 03, 2017 2:07 PM Status: Signed Patient was walked from exam room to procedure room and assisted onto the procedure tablePatient?s procedure was performed in [facility] procedure room. Pressure was applied to patient?s injection site(s) and bleeding was minimal. Patient had no complaint of shortness of breath, dizziness, headache, numbness, tingling, weakness or complications from procedure. Patient was assisted from the procedure table and walked back to exam room. Patient was advised a clinician will be to obtain another set of vitals. >> Felicia Carranza ThuJun 03, 2017 2:22 PM Status: Signed Dressing dry and intact, no drainage noted. The patient denies numbness, tingling, weakness, shortness of breath, dizziness or headache. Pain level 0/10. Patient given discharge instructions and escorted to transportation via ambulatory method. Patient left in good condition. Felicia Carranza Level of Service: POST-OP VISIT (NO CHARGE) NON-OB [[id number]] Disposition: Return for Follow up as scheduled. Follow-up and Disposition History Recorded Encounter Status:Closed by ELBERT RECIO MD on 06/03/17 CNOV Observed: 05/25/2017 Status: COMPLETED Source: [place] 1:30 PM CLINIC OTHER CAMPUS REPOSITORY Office Visit ([facility]) SABA PERRY ([id number]) 1960 F Date Time Provider Department 05/25/17 1:30 PM ELBERT RECIO FATOU [facility] During your visit today, we recorded the following information about you: Pulse Blood pressure Weight Height 72/minute 118/88 68 kg 1.575 m Elbert Recio MD 05/25/2017 1:50 PM Signed Subjective HPI Comments: The patient is a 57-year-old female with neck pain as well as low back and left leg pain. The left leg pain radiates along the anterior and lateral aspect of the left leg to a point below the knee. The low back and leg pain is the predominant issue for her. The pain is interfering with her activities as well as her sleep. She underwent one transforaminal epidural steroid injection on the left at the L4 and L5 levels for pain in the posterior lateral aspect of the leg. That area is not bothering her at this time. She had this epidural and half ago. Her quality of life is not acceptable. Her CT scan of the lumbar spine shows a solid fusion at the L4 5 and the L5-S1 level as well as a hemilaminectomy at the L3 4 level on the left. Review of Systems Constitutional: Negative for chills and fever. Eyes: Negative for blurred vision and double vision. Respiratory: Negative for shortness of breath. Cardiovascular: Negative for chest pain and leg swelling. Gastrointestinal: Negative for nausea. Genitourinary: Negative for dysuria. Neurological: Negative for tingling, weakness and headaches. Endo/Heme/Allergies: Does not bruise/bleed easily. Psychiatric/Behavioral: Positive for depression. Negative for substance abuse and suicidal ideas. The patient is nervous/anxious and has insomnia. PAST MEDICAL HISTORY Diagnosis Date - Acid reflux - Asthma - Degenerative disc disease - Hypertension PAST SURGICAL HISTORY Procedure Laterality Date - BACK SURGERY HX several for degenerative disc disease - HYSTERECTOMY HX FAMILY HISTORY Problem Relation Age of Onset - Heart Father - Diabetes Father - Cataract Father - Cancer Mother Ovarian - Cataract Mother - Cancer Maternal Grandmother liver - Heart Paternal Grandmother - Cancer Paternal Grandmother colon - Heart Paternal Grandfather Social History Marital status: Spouse name: Years of education: Number of children: Social History Main Topics Smoking status: Never Smoker Smokeless status: Never Used Alcohol use: No Drug use: No Other Topics Concern Caffeine Concern Yes Comment:occasional Special Diet No Exercise No Current Meds topiramate (TOPAMAX) 25 mg tablet Take 1 tablet by mouth twice daily. Take at bedtime x 1 week, then increase to twice daily folic acid 1 mg tablet methotrexate 2.5 mg tablet atorvastatin (LIPITOR) 20 mg tablet Take 20 mg by mouth once daily. LISINOPRIL ORAL Take 40 mg by mouth once daily. DULOXETINE HCL (CYMBALTA ORAL) Take 60 mg by mouth once daily. Objective Ht 5' 2ANDquot; (1.58m) Wt 150 lb (68.0kg) BMI 27.43 kg/(m2). Physical Exam Constitutional: She is oriented to person, place, and time and well-developed, well-nourished, and in no distress. No distress. HENT: Head: Normocephalic and atraumatic. Eyes: Pupils are equal, round, and reactive to light. Neck: Neck supple. Musculoskeletal: Cervical back: She exhibits decreased range of motion, tenderness and pain. Lumbar back: She exhibits decreased range of motion, tenderness, bony tenderness and pain. She exhibits no swelling, no edema and no laceration. Lymphadenopathy: Head (right side): No submental, no submandibular, no preauricular and no posterior auricular adenopathy present. Head (left side): No submental, no submandibular, no preauricular and no posterior auricular adenopathy present. Neurological: She is alert and oriented to person, place, and time. She has normal sensation, normal strength and normal reflexes. She is not agitated and not disoriented. She displays no tremor and normal speech. She has an abnormal Straight Leg Raise Test. Gait abnormal. Baylee sign is negative Spurling sign reproduced pain bilaterally Skin: Skin is warm and intact. She is not diaphoretic. Surgical scars well-healed Psychiatric: Mood, memory, affect and judgment normal. Nursing note and vitals reviewed. Assessment and plan The patient is a 57-year-old female with low back and left leg pain in the L3 and L4 distribution as well as neck pain. --The patient is a candidate for a transforaminal epidural steroid injection on the left at the L3 and L4 levels --I explained the risks benefits and alternatives of the procedure to the patient. The patient wishes to proceed. --I encouraged the patient to follow-up with Dr. Escamilla as scheduled --We will consider a cervical epidural steroid injection in the future I spent time educating the patient on the condition including the treatment and the prognosis, and I invited the patient to call at anytime with any questions. Total time spent in patient care was at least 25 minutes, greater than half of which was spent counseling the patient. Referring Provider: SELF [[id number]] Allergies As of Date: 05/25/2017 Noted Allergy Reaction CLINDAMYCIN 08/03/2012 4 - Hives 7 - Swelling 9 - Itching MORPHINE 08/03/2012 11 - Vomiting PENICILLINS 08/03/2012 4 - Hives 7 - Swelling 9 - Itching Date Reviewed: 05/25/2017 Reviewed by: Elbert Recio - Fully Assessed Reason for Visit: Pain [78] Primary Visit Diagnosis:Displacement of cervical intervertebral disc without myelopathy [M50.20] Other Visit Diagnoses:Degeneration of cervical intervertebral disc [M50.30] Cervical spondylosis without myelopathy [M47.812] Lumbar radiculopathy [M54.16] Other chronic pain [G89.29] Order(s):PRE-CERT ORDER (AG) [[id number]] Order #: [id number]: 1 Prescriptions as of 05/25/2017 Sig: TOPIRAMATE 25 MG TABLET Take 1 tablet by mouth twice * FOLIC ACID 1 MG TABLET METHOTREXATE SODIUM 2.5 MG TA* ATORVASTATIN 20 MG TABLET Take 20 mg by mouth once jacqueline* LISINOPRIL ORAL Take 40 mg by mouth once jacqueline* CYMBALTA ORAL Take 60 mg by mouth once jacqueline* Problem List As Of Date 05/25/2017 Noted Resolved Degeneration of cervical intervertebral disc [M*INVALID FOR* Displacement of cervical intervertebral disc wi*INVALID FOR* Cervical spondylosis without myelopathy [M47.81*INVALID FOR* Cervical radiculopathy [M54.12] INVALID FOR* Chronic pain [G89.29] INVALID FOR* Lumbosacral spondylosis without myelopathy [M47*INVALID FOR* Lumbar radiculopathy [M54.16] INVALID FOR* Degeneration of lumbar or lumbosacral intervert*INVALID FOR* Displacement of lumbar intervertebral disc with*INVALID FOR* Inflammation of left sacroiliac joint (HCC) [M4*INVALID FOR* Pain of left sacroiliac joint [M53.3] INVALID FOR* Level of Service: EST PATIENT VISIT LEVEL 4 [[id number]] Disposition: Return for Follow up as scheduled. Follow-up and Disposition History Recorded Encounter Status:Closed by ELBERT RECIO MD on 05/25/17 PROGRESS Observed: 05/25/2017 Status: COMPLETED Source: [place] 1:23 PM CLINIC OTHER CAMPUS REPOSITORY [facility] ID: [id number] Author: Elbert Recio Service: (none) Author Type: Physician Type: Progress Notes Filed: 05/25/2017 1:50 PM Note Text: Subjective HPI Comments: The patient is a 57-year-old female with neck pain as well as low back and left leg pain. The left leg pain radiates along the anterior and lateral aspect of the left leg to a point below the knee. The low back and leg pain is the predominant issue for her. The pain is interfering with her activities as well as her sleep. She underwent one transforaminal epidural steroid injection on the left at the L4 and L5 levels for pain in the posterior lateral aspect of the leg. That area is not bothering her at this time. She had this epidural and half ago. Her quality of life is not acceptable. Her CT scan of the lumbar spine shows a solid fusion at the L4 5 and the L5-S1 level as well as a hemilaminectomy at the L3 4 level on the left. Review of Systems Constitutional: Negative for chills and fever. Eyes: Negative for blurred vision and double vision. Respiratory: Negative for shortness of breath. Cardiovascular: Negative for chest pain and leg swelling. Gastrointestinal: Negative for nausea. Genitourinary: Negative for dysuria. Neurological: Negative for tingling, weakness and headaches. Endo/Heme/Allergies: Does not bruise/bleed easily. Psychiatric/Behavioral: Positive for depression. Negative for substance abuse and suicidal ideas. The patient is nervous/anxious and has insomnia. PAST MEDICAL HISTORY Diagnosis Date - Acid reflux - Asthma - Degenerative disc disease - Hypertension PAST SURGICAL HISTORY Procedure Laterality Date - BACK SURGERY HX several for degenerative disc disease - HYSTERECTOMY HX FAMILY HISTORY Problem Relation Age of Onset - Heart Father - Diabetes Father - Cataract Father - Cancer Mother Ovarian - Cataract Mother - Cancer Maternal Grandmother liver - Heart Paternal Grandmother - Cancer Paternal Grandmother colon - Heart Paternal Grandfather Social History Marital status: Spouse name: Years of education: Number of children: Social History Main Topics Smoking status: Never Smoker Smokeless status: Never Used Alcohol use: No Drug use: No Other Topics Concern Caffeine Concern Yes Comment:occasional Special Diet No Exercise No Current Meds topiramate (TOPAMAX) 25 mg tablet Take 1 tablet by mouth twice daily. Take at bedtime x 1 week, then increase to twice daily folic acid 1 mg tablet methotrexate 2.5 mg tablet atorvastatin (LIPITOR) 20 mg tablet Take 20 mg by mouth once daily. LISINOPRIL ORAL Take 40 mg by mouth once daily. DULOXETINE HCL (CYMBALTA ORAL) Take 60 mg by mouth once daily. Objective Ht 5' 2 (1.58m) Wt 150 lb (68.0kg) BMI 27.43 kg/(m2). Physical Exam Constitutional: She is oriented to person, place, and time and well-developed, well-nourished, and in no distress. No distress. HENT: Head: Normocephalic and atraumatic. Eyes: Pupils are equal, round, and reactive to light. Neck: Neck supple. Musculoskeletal: Cervical back: She exhibits decreased range of motion, tenderness and pain. Lumbar back: She exhibits decreased range of motion, tenderness, bony tenderness and pain. She exhibits no swelling, no edema and no laceration. Lymphadenopathy: Head (right side): No submental, no submandibular, no preauricular and no posterior auricular adenopathy present. Head (left side): No submental, no submandibular, no preauricular and no posterior auricular adenopathy present. Neurological: She is alert and oriented to person, place, and time. She has normal sensation, normal strength and normal reflexes. She is not agitated and not disoriented. She displays no tremor and normal speech. She has an abnormal Straight Leg Raise Test. Gait abnormal. Baylee sign is negative Spurling sign reproduced pain bilaterally Skin: Skin is warm and intact. She is not diaphoretic. Surgical scars well-healed Psychiatric: Mood, memory, affect and judgment normal. Nursing note and vitals reviewed. Assessment and plan The patient is a 57-year-old female with low back and left leg pain in the L3 and L4 distribution as well as neck pain. --The patient is a candidate for a transforaminal epidural steroid injection on the left at the L3 and L4 levels --I explained the risks benefits and alternatives of the procedure to the patient. The patient wishes to proceed. --I encouraged the patient to follow-up with Dr. Escamilla as scheduled --We will consider a cervical epidural steroid injection in the future I spent time educating the patient on the condition including the treatment and the prognosis, and I invited the patient to call at anytime with any questions. Total time spent in patient care was at least 25 minutes, greater than half of which was spent counseling the patient. PROGRESS Observed: 04/28/2017 Status: COMPLETED Source: [place] 2:21 PM CLINIC OTHER CAMPUS REPOSITORY [facility] ID: [id number] Author: Milena Jimenez Service: (none) Author Type: Nurse Practitioner Type: Progress Notes Filed: 04/29/2017 2:25 PM Note Text: HPI Comments: Saba Perry is a 56 year old female who presents for follow-up care for low back pain and neck pain. She has had lumbar medial branch blocks and RFA before and left sided LTR JJ in the past. She has also benefited from the left SIJ RFA. She denies radiation of the pain below the knee at this time. She denies weakness. Recent xrays showed a previous fusion from C4-C7 and degenerative changes above the level of the fusion. She denies weakness or radiation of the pain. She is unsure how much benefit she got from the lumbar MBBs. She is not interested in chiropractic treatments or PT at this time. *Unless noted otherwise, no significant weight loss or gain, fever/chills, myelopathy, neurologic changes, vision changes, psychiatric changes, or changes in bowel and/or bladder function. The history is provided by the patient. Review of Systems Eyes: Negative for blurred vision and double vision. Respiratory: Negative for shortness of breath. Cardiovascular: Negative for chest pain and leg swelling. Gastrointestinal: Negative for constipation, diarrhea, nausea and vomiting. Skin: Negative for itching. Neurological: Positive for tingling. Negative for dizziness, weakness and headaches. Endo/Heme/Allergies: Does not bruise/bleed easily. Psychiatric/Behavioral: Negative for depression and substance abuse. The patient is not nervous/anxious. PAST MEDICAL HISTORY Diagnosis Date - Acid reflux - Asthma - Degenerative disc disease - Hypertension PAST SURGICAL HISTORY Procedure Laterality Date - BACK SURGERY HX several for degenerative disc disease - HYSTERECTOMY HX FAMILY HISTORY Problem Relation Age of Onset - Heart Father - Diabetes Father - Cataract Father - Cancer Mother Ovarian - Cataract Mother - Cancer Maternal Grandmother liver - Heart Paternal Grandmother - Cancer Paternal Grandmother colon - Heart Paternal Grandfather Social History Marital status: Spouse name: Years of education: Number of children: Social History Main Topics Smoking status: Never Smoker Smokeless status: Never Used Alcohol use: No Drug use: No Other Topics Concern Caffeine Concern Yes Comment:occasional Special Diet No Exercise No Current Meds folic acid 1 mg tablet methotrexate 2.5 mg tablet atorvastatin (LIPITOR) 20 mg tablet Take 20 mg by mouth once daily. LISINOPRIL ORAL Take 40 mg by mouth once daily. DULOXETINE HCL (CYMBALTA ORAL) Take 60 mg by mouth once daily. leucovorin (LEUCOVORIN) 25 mg tablet gabapentin (NEURONTIN) 300 mg capsule Take 1 capsule by mouth three times daily. Take 1 tab at HS x 1 week, then increase to BID x 1 week, then increase to TID. white petrolatum-mineral Oil (LUBRIFRESH PM) 83-15 % oint Use 1 application in both eyes daily at bedtime. bacitracin ophthalmic ophthalmic ointment Apply twice daily to upper eyelid incisions balanced salts plus (BSS PLUS) ophthalmic solution Use 1-2 drops each eye up to four times daily as needed for dry eyes There were no vitals taken for this visit. Physical Exam Constitutional: She is oriented to person, place, and time and well-developed, well-nourished, and in no distress. No distress. HENT: Head: Normocephalic and atraumatic. Eyes: Pupils are equal, round, and reactive to light. Cardiovascular: Normal rate, regular rhythm, normal heart sounds and intact distal pulses. Pulmonary/Chest: Effort normal and breath sounds normal. No respiratory distress. She has no wheezes. She has no rales. She exhibits no tenderness. Musculoskeletal: Cervical back: She exhibits decreased range of motion, tenderness (B/L facets), pain (with facet loading) and spasm. Lumbar back: She exhibits decreased range of motion and tenderness. She exhibits no pain and no spasm. Neurological: She is alert and oriented to person, place, and time. She has normal sensation, normal strength and normal reflexes. She is not agitated and not disoriented. She displays no weakness. No sensory deficit. She has an abnormal Straight Leg Raise Test (back pain noted left side). Gait abnormal. GCS score is 15. Skin: Skin is warm and dry. No rash noted. She is not diaphoretic. No erythema. No pallor. Psychiatric: Mood, memory, affect and judgment normal. Nursing note and vitals reviewed. ASSESSMENT/PLAN: 1. Chronic neck and back pain - ICD9: 723.1, 724.5, ICD10: M54.2, M54.9 (primary diagnosis) - TOPIRAMATE 25 MG TABLET- titrate to BID as instructed. May increase dosage in the future. - She is not interested in PT, procedures, or chiro at this time - F/U with Dr. Recio in 2-4 weeks to discuss plan 2. Displacement of cervical intervertebral disc without myelopathy - ICD9: 722.0, ICD10: M50.20 - TOPIRAMATE 25 MG TABLET 3. Degeneration of cervical intervertebral disc - ICD9: 722.4, ICD10: M50.30 4. Cervical spondylosis without myelopathy - ICD9: 721.0, ICD10: M47.812 5. Lumbosacral spondylosis without myelopathy - ICD9: 721.3, ICD10: M47.817 6. Degeneration of lumbar or lumbosacral intervertebral disc - ICD9: 722.52, ICD10: M51.37 7. Displacement of lumbar intervertebral disc without myelopathy - ICD9: 722.10, ICD10: M51.26 8. Pain of left sacroiliac joint - ICD9: 724.6, ICD10: M53.3 Milena Jimenez CNP CNOV Observed: 04/28/2017 Status: COMPLETED Source: [place] 2:00 PM CLINIC OTHER CAMPUS REPOSITORY Office Visit ([facility]) ORLANDOS[place] RUSHING Gen ([id number]) 1960 F Date Time Provider Department 04/28/17 2:00 PM MILENA JIMENEZ ([place]) [facility] During your visit today, we recorded the following information about you: Pulse Blood pressure 59/minute 136/86 Milena Jimenez CNP 04/29/2017 2:25 PM Signed HPI Comments: Saba Perry is a 56 year old female who presents for follow-up care for low back pain and neck pain. She has had lumbar medial branch blocks and RFA before and left sided LTR JJ in the past. She has also benefited from the left SIJ RFA. She denies radiation of the pain below the knee at this time. She denies weakness. Recent xrays showed a previous fusion from C4-C7 and degenerative changes above the level of the fusion. She denies weakness or radiation of the pain. She is unsure how much benefit she got from the lumbar MBBs. She is not interested in chiropractic treatments or PT at this time. *Unless noted otherwise, no significant weight loss or gain, fever/chills, myelopathy, neurologic changes, vision changes, psychiatric changes, or changes in bowel and/or bladder function. The history is provided by the patient. Review of Systems Eyes: Negative for blurred vision and double vision. Respiratory: Negative for shortness of breath. Cardiovascular: Negative for chest pain and leg swelling. Gastrointestinal: Negative for constipation, diarrhea, nausea and vomiting. Skin: Negative for itching. Neurological: Positive for tingling. Negative for dizziness, weakness and headaches. Endo/Heme/Allergies: Does not bruise/bleed easily. Psychiatric/Behavioral: Negative for depression and substance abuse. The patient is not nervous/anxious. PAST MEDICAL HISTORY Diagnosis Date - Acid reflux - Asthma - Degenerative disc disease - Hypertension PAST SURGICAL HISTORY Procedure Laterality Date - BACK SURGERY HX several for degenerative disc disease - HYSTERECTOMY HX FAMILY HISTORY Problem Relation Age of Onset - Heart Father - Diabetes Father - Cataract Father - Cancer Mother Ovarian - Cataract Mother - Cancer Maternal Grandmother liver - Heart Paternal Grandmother - Cancer Paternal Grandmother colon - Heart Paternal Grandfather Social History Marital status: Spouse name: Years of education: Number of children: Social History Main Topics Smoking status: Never Smoker Smokeless status: Never Used Alcohol use: No Drug use: No Other Topics Concern Caffeine Concern Yes Comment:occasional Special Diet No Exercise No Current Meds folic acid 1 mg tablet methotrexate 2.5 mg tablet atorvastatin (LIPITOR) 20 mg tablet Take 20 mg by mouth once daily. LISINOPRIL ORAL Take 40 mg by mouth once daily. DULOXETINE HCL (CYMBALTA ORAL) Take 60 mg by mouth once daily. leucovorin (LEUCOVORIN) 25 mg tablet gabapentin (NEURONTIN) 300 mg capsule Take 1 capsule by mouth three times daily. Take 1 tab at HS x 1 week, then increase to BID x 1 week, then increase to TID. white petrolatum-mineral Oil (LUBRIFRESH PM) 83-15 % oint Use 1 application in both eyes daily at bedtime. bacitracin ophthalmic ophthalmic ointment Apply twice daily to upper eyelid incisions balanced salts plus (BSS PLUS) ophthalmic solution Use 1-2 drops each eye up to four times daily as needed for dry eyes There were no vitals taken for this visit. Physical Exam Constitutional: She is oriented to person, place, and time and well-developed, well-nourished, and in no distress. No distress. HENT: Head: Normocephalic and atraumatic. Eyes: Pupils are equal, round, and reactive to light. Cardiovascular: Normal rate, regular rhythm, normal heart sounds and intact distal pulses. Pulmonary/Chest: Effort normal and breath sounds normal. No respiratory distress. She has no wheezes. She has no rales. She exhibits no tenderness. Musculoskeletal: Cervical back: She exhibits decreased range of motion, tenderness (B/L facets), pain (with facet loading) and spasm. Lumbar back: She exhibits decreased range of motion and tenderness. She exhibits no pain and no spasm. Neurological: She is alert and oriented to person, place, and time. She has normal sensation, normal strength and normal reflexes. She is not agitated and not disoriented. She displays no weakness. No sensory deficit. She has an abnormal Straight Leg Raise Test (back pain noted left side). Gait abnormal. GCS score is 15. Skin: Skin is warm and dry. No rash noted. She is not diaphoretic. No erythema. No pallor. Psychiatric: Mood, memory, affect and judgment normal. Nursing note and vitals reviewed. ASSESSMENT/PLAN: 1. Chronic neck and back pain - ICD9: 723.1, 724.5, ICD10: M54.2, M54.9 (primary diagnosis) - TOPIRAMATE 25 MG TABLET- titrate to BID as instructed. May increase dosage in the future. - She is not interested in PT, procedures, or chiro at this time - F/U with Dr. Recio in 2-4 weeks to discuss plan 2. Displacement of cervical intervertebral disc without myelopathy - ICD9: 722.0, ICD10: M50.20 - TOPIRAMATE 25 MG TABLET 3. Degeneration of cervical intervertebral disc - ICD9: 722.4, ICD10: M50.30 4. Cervical spondylosis without myelopathy - ICD9: 721.0, ICD10: M47.812 5. Lumbosacral spondylosis without myelopathy - ICD9: 721.3, ICD10: M47.817 6. Degeneration of lumbar or lumbosacral intervertebral disc - ICD9: 722.52, ICD10: M51.37 7. Displacement of lumbar intervertebral disc without myelopathy - ICD9: 722.10, ICD10: M51.26 8. Pain of left sacroiliac joint - ICD9: 724.6, ICD10: M53.3 SATURNINO Head CNP 04/28/2017 2:43 PM Signed Continue home exercise regimen Referring Provider: SELF [200] Allergies As of Date: 04/28/2017 Noted Allergy Reaction CLINDAMYCIN 08/03/2012 4 - Hives 7 - Swelling 9 - Itching MORPHINE 08/03/2012 11 - Vomiting PENICILLINS 08/03/2012 4 - Hives 7 - Swelling 9 - Itching Date Reviewed: 04/28/2017 Reviewed by: [facility]) Barbara - Fully Assessed Reason for Visit: Follow Up [171] Primary Visit Diagnosis:Chronic neck and back pain [M54.2, M54.9] Other Visit Diagnoses:Displacement of cervical intervertebral disc without myelopathy [M50.20] Degeneration of cervical intervertebral disc [M50.30] Cervical spondylosis without myelopathy [M47.812] Lumbosacral spondylosis without myelopathy [M47.817] Degeneration of lumbar or lumbosacral intervertebral disc [M51.37] Displacement of lumbar intervertebral disc without myelopathy [M51.26] Pain of left sacroiliac joint [M53.3] Order(s):topiramate (TOPAMAX) 25 mg tabletTake 1 tablet by mouth twice daily. Take at bedtime x 1 week, then increase to twice dailyDisp: 60 tabletRfl: 1 Prescriptions as of 04/28/2017 Sig: FOLIC ACID 1 MG TABLET METHOTREXATE SODIUM 2.5 MG TA* ATORVASTATIN 20 MG TABLET Take 20 mg by mouth once jacqueline* LISINOPRIL ORAL Take 40 mg by mouth once jacqueline* CYMBALTA ORAL Take 60 mg by mouth once jacqueline* TOPIRAMATE 25 MG TABLET Take 1 tablet by mouth twice * Problem List As Of Date 04/28/2017 Noted Resolved Degeneration of cervical intervertebral disc [M*INVALID FOR* Displacement of cervical intervertebral disc wi*INVALID FOR* Cervical spondylosis without myelopathy [M47.81*INVALID FOR* Cervical radiculopathy [M54.12] INVALID FOR* Chronic pain [G89.29] INVALID FOR* Lumbosacral spondylosis without myelopathy [M47*INVALID FOR* Lumbar radiculopathy [M54.16] INVALID FOR* Degeneration of lumbar or lumbosacral intervert*INVALID FOR* Displacement of lumbar intervertebral disc with*INVALID FOR* Inflammation of left sacroiliac joint (HCC) [M4*INVALID FOR* Pain of left sacroiliac joint [M53.3] INVALID FOR* Other instructions from your clinician: Continue home exercise regimen Prescriptions ordered this encounter Disp Refills Start End TOPIRAMATE 25 MG TABLET 60 t* 1 04/28/2017 Route: ORAL Sig: Take 1 tablet by mouth twice daily. Take at bedtime x 1 week, then increase to twice daily Medications Discontinued During This Encounter balanced salts plus (BSS PLUS) ophth* 15 mL 0 11/29/2015 04/28/2017 Class: Print RX Sig: Use 1-2 drops each eye up to four times daily as needed for dry eyes Disc: Reason for discontinue is not on file. bacitracin ophthalmic ophthalmic oin* 3.5 g 0 11/29/2015 04/28/2017 Class: Print RX Sig: Apply twice daily to upper eyelid incisions Disc: Reason for discontinue is not on file. white petrolatum-mineral Oil (LUBRIF* 3.5 g 0 11/29/2015 04/28/2017 Class: Print RX Route: BOTH EYES Sig: Use 1 application in both eyes daily at bedtime. Disc: Reason for discontinue is not on file. gabapentin (NEURONTIN) 300 mg capsule 90 c* 0 01/15/2016 04/28/2017 Route: ORAL Sig: Take 1 capsule by mouth three times daily. Take 1 tab at HS x 1 week, then increase to BID x 1 week, then increase to TID. Disc: Reason for discontinue is not on file. leucovorin (LEUCOVORIN) 25 mg tablet 10/01/2016 04/28/2017 Class: Historical Med Sig: Disc: Reason for discontinue is not on file. Level of Service: EST PATIENT VISIT LEVEL 4 [50503] Disposition: Return in about 4 weeks (around 05/26/2017) for Neck pain, Low back pain. Follow-up and Disposition History Recorded Encounter Status:Closed by MILENA JIMENEZ CNP on 04/29/17 HIP UNILATERAL 2-3 Observed: 04/06/2017 Status: F Source: [facility] 12:00 AM [facility] [address] [place], [place] [address] Name: SABA PERRY Phys: MT BARRIOS PA-C : 56 Age: 56 Sex: F Acct: [id number] Loc: RAD Exam Date: 01/22/18 Status: REG CLI Radiology No.: [id number] Unit Number: [id number] Exam # Type/Exam [id number] RAD / HIP UNILATERAL 2-3 VIEWS Two-view left hip [] Clinical Indication: Pain Comparison: None Findings: No acute fracture or dislocation is identified. There is mild degenerative change. Postsurgical changes are noted in the pelvis. There are soft tissue vascular calcifications noted. Impression:[] No acute process Professional interpretation provided by [facility], [place] on [facility]-63. Thank you for this referral. <<Signature on File>> Reported By: TAYE MARCUS MD Signed In NovaPro By: TAYE MARCUS MD << Signature on File>> Reported By: TAYE MARCUS MD Signed By: TAYE MARCUS MD Tests performed at: [address] [address] CBC Collected: 03/17/2017 Status: F Source: [facility] 3:51 PM HOSPITAL REPOSITORY TYPE CODE TESTS RESULT OUT OF RANGE REFERENCE UNITS LAB L200.0100 4.5-10.0 x10(3) Normal WBC 8.8 LAB L200.0200 3.30-5.00 x10(6) Normal RBC 4.23 LAB L200.0210 12.0-16.0 g/dL Normal HGB 12.3 LAB L200.0220 36.0-48.0 % Normal HCT 37.0 LAB L200.0230 80.0-99.0 fl Normal MCV 87.7 LAB L200.0240 28.5-32.9 pg Normal MCH 29.0 LAB L200.0250 33.0-36.0 g/dL Normal MCHC 33.1 LAB L200.0260 12.5-15.7 % Normal RDW 15.3 LAB L200.0270 150-450 X10(3) Normal PLT 337 LAB L200.0290 7.5-9.5 fl Normal MPV 8.2 LAB L200.0300 45.0-73.0 % Normal NEUT% 67.9 LAB L200.0310 16.0-48.0 % Normal LYMPH% 21.7 LAB L200.0320 4.3-11.2 % Normal MONO% 6.1 LAB L200.0330 0.5-4.9 % Normal EOS% 3.5 LAB L200.0340 0.0-1.0 % Normal BASO% 0.8 LAB L200.0350 1.40-6.50 x10(3) Normal NEUT# 6.00 LAB L200.0360 1.00-3.50 x10(3) Normal LYMPH# 1.90 LAB L200.0370 0.30-0.80 x10(3) Normal MONO# 0.50 LAB L200.0380 0.00-0.54 x10(3) Normal EOS# 0.30 LAB L200.0390 0.00-0.10 x10(3) Normal BASO# 0.10 Performed By: #### L200.0010 #### [facility] [address] [place] [address] CMP Collected: 03/17/2017 Status: F Source: [facility] 3:51 PM HOSPITAL REPOSITORY TYPE CODE TESTS RESULT OUT OF RANGE REFERENCE UNITS LAB L100.0060 74-106 mg/dL High GLUCOSE 125 LAB L100.0110 6-20 mg/dL BUN Normal 13 LAB L100.0131 0.50-0.90 mg/dL Normal CREATININE 0.78 LAB L100.0140 8.6-10.0 mg/dL CALCIUM Normal 9.2 LAB L100.0150 135-145 mmol/L SODIUM Normal 145 LAB L100.0160 3.5-5.0 mmol/L Normal POTASSIUM 4.2 LAB L100.0170 98-107 mmol/L CHLORIDE Normal 103 LAB L100.0180 22-29 mmol/L TCO2 Normal 28 LAB L100.0185 15-22 mmol/L ANION Normal GAP 18.2 LAB L100.0200 6.4-8.3 g/dL TOTAL Normal PROTEIN 7.0 LAB L100.0210 3.5-5.2 g/dL ALBUMIN Normal 4.4 LAB L100.0220 0.2-1.2 mg/dL TOTAL Normal BILIRUBIN <0.2 LAB L100.0240 5-32 U/L AST Normal 21 LAB L100.0250 5-33 U/L ALT Normal 21 LAB L100.0260 35-105 U/L High ALK. PHOS 110 LAB L100.0262 1.5-4.5 g/dL Normal GLOBULIN,CALC 2.6 LAB L100.0264 1.1-2.5 A:G Normal RATIO 1.69 LAB L100.0274 eGFR Normal nonAFR [place] > 60 ml/Min/1.73m 2 LAB L100.0275 eGFR if Normal AFR BEVERLY > 60 ml/min/1.73m 2 Result Comment: eGFR >= 60 Indicates normal kidney function. * eGFR IS AN ESTIMATE * (AFR BEVERLY = ) (non-AFR AM = NON-) MDRD calculation used in the eGFR should not be used to dose medications. For further limitations of the eGFR please refer to the Physician Website or the National Kidney Disease Education Program website (www.nkdep.nih.gov). Performed By: #### L100.0005 #### [facility] - LABORATORY [address] [place] [address] ALLERGIES ALLERGIES DATE TYPE / CODE NAME / CODE REACTION SEVERITY SOURCE 08/03/2012 DRUG CLINDAMYCIN HIVES [facility] INGREDI/419 Other [place] 267494(SNOM Repository ED CT) 08/03/2012 DRUG MORPHINE Vomiting [facility] INGREDI/419 Other [place] 602390(SNOM Repository ED CT) 08/03/2012 Drug PENICILLINS HIVES [facility] Class/49951 Other [place] 1003(SNOMED Repository CT) NG/[id number] [facility]IND[facility]CIN [facility] NG/[id number] MORPHINE [facility] Rep[facility] NG/[id number] PENICILLINS [facility] Repository ENCOUNTERS ENCOUNTERS ADMIT/DISCHARGE ACCOUNT NUMBER ADMITTING ENCOUNTER LOCATION SOURCE CLASS 02/10/2018 [id number] Ambulatory [facility] ding:MTLAB Repository 01/26/2018 [id number] Ambulatory UNIBuilding: [facility] Repository 11/17/2017 [id number] Ambulatory UNIBuilding: [facility] Repository 08/28/2017 [id number] Ambulatory UNIBuilding: [facility] Repository 06/19/2017 [id number] Ambulatory [facility] MEDICAL Repository CENTERBuildi ng:AGSPINEHW G 06/18/2017 [id number] Ambulatory UNIBuilding: [facility] Repository 06/03/2017/06/04/19 [id number] Ambulatory [address] Other [place] Repository 06/03/2017/06/04/19 [id number] Ambulatory [address] MEDICAL Repository CENTERBuildi ng:AGSPINEHW G 05/25/2017/05/26/19 [id number] Ambulatory [address] Other [place] Repository 05/25/2017/05/26/19 [id number] Ambulatory [address] MEDICAL Repository CENTERBuildi ng:AGSPINEHW G 05/15/2017 [id number] Ambulatory UNIBuilding: [facility] Repository 04/28/2017/04/28/19 [id number] Ambulatory [address] Other [place] Repository 04/28/2017/04/28/19 [id number] Ambulatory [address] MEDICAL Repository CENTERBuildi ng:AGSPINEHW G 04/06/2017 [id number] Ambulatory UNIBuilding: [facility] Repository 03/17/2017 [id number] Ambulatory UNIBuilding: [facility] Repository PAYERS PAYERS ENCOUNTER GUARANTOR PAYER SUBSCRIBER SOURCE 02/10/2018 SABA Gen Primary SABA PERRYDOB: Michela [id number] Insurance:MEDICARE [id number] A BPolicy Number: [facility], [id number] Repository [place] [address]Yzy: Date:2018-02-10 () 02/10/2018 Secondary SABA METZGERB: Michela Insurance[facility] [id number] Health Network Number: [facility] [id number] Repository Date:[id number], [place] [address]SX: 02/10/2018 Tertiary NOT GIVENUNK [place] Insurance:SELF PAY [facility] Number: Effective Repository Date:2018-02-10 01/26/2018 SABA A Primary SABA Bernal [facility] [id number] STONE Insurance:MEDICARE Hospital [address] DISABILITYPolicy Repository [facility], Number: [id number]: [id number] Date:2009-11-14 () 01/26/2018 Secondary SABA Bernal [facility] Repository [id number] Date: 11/17/2017 SABA A Primary SABA A NICHOLE Bernal [facility] [id number] STONE Insurance:MEDICARE Hospital [address] DISABILITYPolicy Repository [facility], Number: [id number]: [id number] Date:2009-11-14 () 11/17/2017 Secondary SABA Bernal [facility] Insurance:[facility] Number: Repository [id number] Date: 08/28/2017 SABA A Primary SABA A NICHOLE Bernal [facility] [id number] [address] Insurance:MEDICARE Hospital [address] DISABILITYPolicy Repository [facility], Number: [id number]: [id number] Date:2009-11-14 () 08/28/2017 Secondary SABA Bernal [facility] Number: Repository [id number] Date: 06/19/2017 SABA A Primary SABA PERRYDOB: [facility] HANEYDOB: Insurance:MEDICARE A [id number] [facility] AND BPolicy Number: Repository [place] [address] [id number] [facility], Date: [place] [address]Mln: () 06/19/2017 Secondary SABA PERRYDOB: [facility] Insurance:[facility] [id number]aultP[facility] Number: Repository [id number] Date: 06/18/2017 SABA A Primary SABA Bernal [facility] [id number] STONE Insurance:MEDICARE Hospital [address] DISABILITYPolicy Repository [facility], Number: [place] [id number]: [id number] Date:2009-11-14 () 06/18/2017 Secondary SABA A NICHOLE Bernal [facility] Number: Repository [id number] Date: 06/03/2017 SABA A Primary SABA A HANEYDOB: [facility] HANEYDOB: Insurance:MEDICARE A [id number] Specialty Hospital-[facility] AND BPolicy Number: Repository [place] [address] [id number] [facility] Date: [place] [address]Nli: () 06/03/2017 Secondary SABA A HANEYDOB: [facility] Insurance:[facility] [id number] Specialty Hospital-[facility] Po[facility] CENTERPolicy Number: Repository [id number] Date: 05/25/2017 SABA A Primary SABA A HANEYDOB: [facility] HANEYDOB: Insurance:MEDICARE A [id number] Specialty Hospital-Grosse Po[facility] AND BPolicy Number: Repository [place] [address] [id number] RDSTONECR[address], Date: [place] [address]Vvb: () 05/25/2017 Secondary SABA A HANEYDOB: [facility] Insurance:[facility] [id number] Specialty Hospital-Grosse Pointe CENTERPolicy Number: Repository [id number] Date: 05/15/2017 SABA A Primary SABA A NICHOLE [facility] [id number] [place] Insurance:MEDICARE Hospital [address] DISABILITYPolicy Repository [facility] [address], Number: [place] [id number]: [id number] Date:2009-11-14 (HP) 05/15/2017 Secondary SABA A NICHOLE Bernal [facility]: Repository [id number] Date: 04/28/2017 SABA A Primary SABA A HANEYDOB: [facility] HANEYDOB: Insurance:MEDICARE A [id number] Specialty Hospital-G[facility] Po[facility] AND BPolicy Number: Repository [place] [address] [id number] RDSTONECREEK, Date: [place] [address]Dwu: () 04/28/2017 Secondary SABA METZGERB: [facility] Insurance:[facility] [id number] Medical Center SaultPolicy Number: Repository [id number] Date: 04/06/2017 SABA A Primary SABA Bernal [facility] [id number] [place] Insurance:MEDICARE [address] DISABILITYPolicy Repository [facility], Number: [id number]: [id number] Date:2009-11-14 () 04/06/2017 Secondary SABA VARELA [facility] Insurance:[facility] Number: Repository [id number] Date: 03/17/2017 SABA A Primary SABA Bernal [facility] [id number] [place] Insurance:MEDICARE Hospital [address] DISABILITYPolicy Repository [facility], Number: [id number]: [id number] Date:2009-11-14 () 03/17/2017 Secondary SABA VARELA [facility] Insurance:[facility] Number: Repository [id number] Date:
== END ==
PROVIDERS: Referring Provider Internal Medicine Rheumatology; Visit Provider Internal Medicine Rheumatology
DX: L40.59 Other psoriatic arthropathy (principal); L40.8 Other psoriasis; M35.00 Sjogren syndrome, unspecified; M18.0 Bilateral primary osteoarthritis of first carpometacarpal joints; M21.40 Flat foot [pes planus] (acquired), unspecified foot; M50.30 Other cervical disc degeneration, unspecified cervical region; M51.37 Other intervertebral disc degeneration, lumbosacral region; I10 Essential (primary) hypertension; E78.5 Hyperlipidemia, unspecified; F32.89 Other specified depressive episodes; J45.909 Unspecified asthma, uncomplicated; Z79.899 Other long term (current) drug therapy
CPT/HCPCS: 36415; 71046; 80048